=== PATIENT | male | born 2000 | race Caucasian/White ===

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

== ENCOUNTER → 2020-04-15 15:45 | Outpatient (CLI) | payer BC, SELFPAY ==
[2018-11-06 14:11] VITALS: BMI 20.5
[2020-04-15 17:59] LABS: Absolute Lymphocyte Count 2.69 X10^3/uL (0.83-4.51); Absolute Neutrophil Count 3.1 X10^3/uL (2.0-7.7); Basophil# 0.02 X10^3/uL; Basophil% 0.3 % (0-1); Eosinophil# 0.05 X10^3/uL; Eosinophils% 0.8 % (0-5); Hematocrit 45.1 % (40-54); Hemoglobin 15.6 g/dL (13.0-16.5); Lymphocyte # 2.69 X10^3/ul (4.0); Lymphocyte % 41.8 % (19-41); Mean Corp Hgb Conc 34.6 g/dL (32-36); Mean Corpuscular Hgb 31.8 pg (27.0-32.0); Mean Platelet Vol. 12.4 fl (6.2-12.0); Monocyte# 0.54 X10^3/uL; Monocyte% 8.4 % (0-10); NRBC Flagged by Analyzer 0 % (0-5); Neutrophil # 3.12 X10^3/uL (2.7-7.7); Neutrophil % 48.5 % (47-70); Platelet Count 220 K/mm3 (150-450); RBC Distribution Width SD 40.7 fl (35.1-43.9); White Blood Count 6.4 K/mm3 (4.4-11.0)
[2020-04-15 18:21] LABS: Erythrocyte Sedimentation Rate 1 mm/hr (0-20)
[2020-04-15 18:25] LABS: ALB/GLOB Ratio 1.5 RATIO (0.9-2.4); AST(SGOT) 11 U/L (15-37); Alanine Aminotransfer ALT/SGPT 16 U/L (16-61); Albumin, Serum 4.5 g/dL (3.2-5.0); Alkaline Phosphatase 71 U/L (45-117); Amylase 36 U/L (25-115); Anion Gap 6 (5-15); BUN 14 mg/dL (7-18); BUN/Creat Ratio 14.6 RATIO (10-20); Calcium,Total 9.4 mg/dL (8.5-10.1); Chloride 108 mmol/L (98-107); Creatinine, Serum 0.96 mg/dL (0.70-1.30); EST Glomerular Filtration Rate 106 mL/min (>60); Est Glom Filt Rate - Afr Amer 128 mL/min (>60); Glucose 105 mg/dL (74-106); Lipase 109 U/L (73-393); Potassium 4.1 mmol/L (3.5-5.1); Protein, Total 7.5 g/dL (6.4-8.2); Sodium Level 143 mmol/L (136-145)
== END ==
LOC: MFPLAB 15:46
PROVIDERS: PCP Family Medicine; Referring Provider Family Medicine; Visit Provider Family Medicine
DX: R10.9 Unspecified abdominal pain (principal)
CPT/HCPCS: 36415; 80053; 82150; 83690; 85025; 85652

== ENCOUNTER → 2020-04-24 10:02 | Outpatient (CLI) | payer BC, SELFPAY ==
[2018-11-06 14:11] VITALS: BMI 20.5
--- NOTE | 2020-04-24 10:05 | RAD_ITS ---
STUDY: AIR-CONTRAST ESOPHAGRAM STUDY REASON FOR EXAM: Male, 19 years old. Vomiting FLUOROSCOPY TIME (if supplied): (0:22) minutes/seconds, 12 images. TECHNIQUE: Barium pill swallow with sips of water is performed at the beginning of the study without difficulty. Multiple barium swallows were performed under fluoroscopic monitoring. Multiple views of the esophagus, the upper stomach were performed. COMPARISON: None. FINDINGS: Barium pill swallow with sips of water is performed at the beginning of the study without difficulty. The esophagus appears normal in size and shape it shows unremarkable mucosal pattern. There is no evidence of hiatal hernia or abnormal vascular compression. RAD/Esophagus Dual Contrast IMPRESSION: Unremarkable study. Electronically Signed: Galo Mcdowell MD at 4:22 EDT Tel , Service support ,
== END ==
PROVIDERS: PCP Family Medicine; Visit Provider Family Medicine
DX: R11.10 Vomiting, unspecified (principal)
CPT/HCPCS: 74221

== ENCOUNTER 2023-11-06 13:07 | Emergency (ER) | payer OTHER, BC, SELFPAY ==
[2023-11-06 13:08] VITALS: BP 127/72; PULSE 51; RESP 18; TEMP 36.2; O2SAT 100; BMI 21.7
--- NOTE | 2023-11-06 15:50 | CT_ITS ---
STUDY: CT BRAIN WITHOUT CONTRAST REASON FOR EXAM: Male, 23 years old. Head injury RADIATION DOSAGE (If Supplied By Facility): CTDIvol = ( 47.06 ) mGy, DLP = ( 890.33 ) mGycm TECHNIQUE: Transaxial CT imaging of the brain was performed without administration of intravenous contrast material. Individualized dose optimization techniques were used for this CT. COMPARISON: No relevant priors. FINDINGS: Mild soft tissue swelling of the left forehead without associated skull fracture Mild ventricular asymmetry likely normal variant.. Normal white matter tracts of the cerebral hemispheres. Normal basal ganglia and thalami. Normal brainstem. Normal cerebellum. There is no intracranial hemorrhage. There are no findings of an acute ischemic infarction. Normal visualized paranasal sinuses. CT/Brain/Head without Contrast IMPRESSION: Mild soft tissue swelling of the left forehead without evidence for acute skull fracture or intracranial hemorrhage. Electronically Signed: Vini Luu MD at 16:45 EDT ,
--- NOTE | 2023-11-06 15:50 | RAD_ITS ---
STUDY: X-RAY - LEFT WRIST REASON FOR EXAM: Male, 23 years old. Trauma TECHNIQUE: 3 view(s) of the wrist were obtained. COMPARISON: None. FINDINGS: Normal visualized distal radius and ulna. Normal radiocarpal articulation. Normal distal radioulnar articulation. Normal carpal bones. Normal carpal articulations. Normal carpometacarpal articulation of the thumb. Normal second through fifth carpometacarpal articulations. Normal visualized metacarpal bones. The soft tissue structures are unremarkable. RAD/Wrist min 3 Views IMPRESSION: Normal x-ray examination of the wrist. Electronically Signed: Vini Luu MD at 16:47 EDT ,
--- NOTE | 2023-11-06 15:51 | EX.ED.GENINJ ---
HPI History of Present Illness Chief Complaint: Head Injury Narrative Narrative: 23-year-old male who denies any acute past medical history presents with work-related injury that happened approximately 3-1/2 hours ago. He states that he works at [employer], and he just received dakotah of straw. He was trying to remove them when the first row fell on top of him. He fell forward onto the pavement from about 4 feet high off the trailer. He thinks he may have lost consciousness for about 5 seconds. He presents with injury to his forehead mainly where he sustained lacerations. He is unsure of his last tetanus immunization. He also states that during the fall he injured his left wrist/medial aspect. He has pain is worse with movement. He is right-hand dominant. Additionally, he thinks he may have broken his right great toe. He does not take blood thinners or other daily medications. Tetanus Immunization: Unknown [facility] Medical History Dog bite of finger Acute appendicitis Home Medications ?Medication ?Instructions ?Recorded ?Last Taken ?Type cephalexin 500 mg capsule 500 mg PO TID #21 caps 10/18/18 Unknown Rx Allergy/AdvReac Type Severity Reaction Status Date / Time No Known Allergies Allergy Verified 11/06/23 13:08 Surgical History S/P laparoscopic appendectomy (~12/19/17) Social History Smoking Status: Never smoker ROS ROS ED ROS Narrative Constitutional: No fever, no chills. HEENT: No sore throat. No neck pain. No loss of vision. No rhinorrhea. Lacerations to forehead. Cardiovascular: No chest pain. No palpitations. No pedal edema. Respiratory: No cough, no shortness of breath. Abdominal: No abdominal pain. No nausea. No vomiting. Genitourinary: No dysuria. No hematuria. Musculoskeletal: No myalgias. Left medial wrist pain worse with movement. Right great toe pain worse with movement and weightbearing, and walking. Neurologic: No headaches. No dizziness. No lightheadedness. Skin: No rash. No change in color. EXAM Physical Exam Narrative Exam Narrative: GCS 15. ABCs are intact. Head is normocephalic. There are total of 3 lacerations on his forehead, 1 running vertically more towards the midline that is approximately 1 cm or less, no active bleeding or gaping. There is another less than 1 cm laceration running more horizontally, next to it is a less than 0.5 cm superficial laceration. Cardiovascular examination reveals a regular rate and rhythm with intermittent bradycardia. Lungs are clear to auscultation bilaterally. Neck is soft and supple without vertebral point tenderness or bony step-off. Full range of motion without pain. Abdomen soft nontender with normoactive bowel sounds. Mild tenderness to palpation left distal ulna. Flexion extension of wrist intact. Uninjured at elbow and above. Able to oppose thumb, left. Palpable radial pulse. Abduction and adduction and fingers intact. Good capillary refill fingers of left hand. Right great toe tenderness to palpation with mild ecchymosis. Good capillary refill. Palpable dorsalis pedis pulse, right foot. Const Vital Signs: 11/06/23 13:08 11/06/23 16:01 11/06/23 17:07 Temperature 97.1 F L Temperature Source Temporal Pulse Rate 51 L Respiratory Rate 18 Respiratory Effort Normal Blood Pressure 127/72 H 122/91 H Blood Pressure Mean 90 101 Pulse Ox 100 Oxygen Delivery Method Room Air MDM MDM MDM Narrative Medical decision making narrative: Patient's tetanus will be updated. Differential diagnosis includes intracranial hemorrhage versus skull fracture versus closed head injury. For his left wrist injury, differential includes but not limited to fracture versus sprain, and the same goes for his right great toe, he may have an underlying fracture versus toe sprain/foot contusion. His superficial and the lacerations on his forehead were cleansed. I do feel that they are amenable to Dermabond closure as they are not gaping. I reviewed the radiology report of the CT of the brain and there is mild soft tissue swelling of the left forehead without acute skull fracture or intracranial hemorrhage. Wrist x-ray and 3 views of the left wrist interpreted by myself shows no acute fracture. I reviewed the radiology report which confirms my independent interpretation. On my independent interpretation of the x-ray of the right foot, there is a comminuted minimally displaced fracture that appears intra-articular of the great toe. It is the distal phalanx portion. At this point in time, he will be placed in a walking boot and be weightbearing as tolerated. He was referred to orthopedics in the [facility] as this is a work-related injury. His wounds were cleansed with Shur-Clens and Dermabond applied. Patient tolerated procedure well. He will take [id number] medications and he was given a note to return to work tomorrow with restrictions of having to wear his walking boot, and allow patient to sit and elevate his right lower extremity as needed. Restrictions apply until cleared by orthopedics or [facility] clinic. Return instructions to the emergency department were reviewed. Disposition is discharged home in stable condition. History & Record Review Discussion w/independent historian: Patient Additional record(s) reviewed:: Prior ED visit (Noncontributory to current chief complaint) Radiography Diagnostic Testing: Clinical Impression(s) from Imaging Studies Brain CT 11/06/23 15:50 IMPRESSION: Mild soft tissue swelling of the left forehead without evidence for acute skull fracture or intracranial hemorrhage. Electronically Signed: Vini Luu MD at 16:45 EDT , Wrist X-Ray 11/06/23 15:50 IMPRESSION: Normal x-ray examination of the wrist. Electronically Signed: Vini Luu MD at 16:47 EDT , Foot X-Ray 11/06/23 16:16 IMPRESSION: Acute comminuted minimally displaced fracture of the distal phalanx of the great toe Electronically Signed: Vini Luu MD at 16:48 EDT , Discharge Plan Triage Chief Complaint: Head Injury ED Provider: Johnny Marie Dx/Rx/DC Orders Clinical Impression: Fall, Fracture of great toe of right foot, Left wrist sprain, Laceration of skin of forehead, Closed head injury Instructions: ED Head Injury (Adult), ED Laceration, Face: Skin Glue, ED Fracture, Toe, Closed, ED Wrist Sprain Prescriptions: No Action cephalexin 500 mg capsule 500 mg PO TID Qty: 21 0RF Primary Care Provider: Teo Lopez Referrals: Teo Lopez MD [Primary Care Provider] - 3-5 Days Jan Perry DO [Med Staff - Active Staff] - 3-5 Days Clinic,[facility] [Non-Staff] - 2 Days Activity Restrictions/Additional Instructions: Follow-up with the [facility] clinic within the next few days for further restrictions/back to work. Call Dr. Blackwell to see if he takes workmen's compensation claims for your right great toe fracture. Weightbearing as tolerated. Wear your walking boot, you may remove it for bathing and sleeping. Print Language: Moldovan Disposition Disposition: Home, Self Care Discharge Date/Time: 11/06/23 18:05
[2023-11-06] MEDS: Diphth,Pertuss(Acell),Tet Vac 0.5 ML Vial IM (15:57)
--- NOTE | 2023-11-06 16:16 | RAD_ITS ---
STUDY: X-RAY - RIGHT FOOT CLINICAL: Male, 23 years old. Trauma -- Attention great toe TECHNIQUE: 3 view(s) of the foot. COMPARISON: None. FINDINGS: Normal talus, calcaneus, and tarsal bones. Normal visualized subtalar, talonavicular, calcaneocuboid, tarsal and tarsometatarsal articulations. Normal metatarsi. Normal metatarsophalangeal joint of the great toe. Normal tibial and fibular sesamoid bones. Normal interphalangeal joint of the great toe. Acute minimally displaced intra-articular fracture of the distal phalanx of the great toe Normal second through fifth metatarsophalangeal joints. Normal interphalangeal joints and phalanges of the lesser toes. Soft tissue swelling of the great toe RAD/Foot min 3 Views IMPRESSION: Acute comminuted minimally displaced fracture of the distal phalanx of the great toe Electronically Signed: Vini Luu MD at 16:48 EDT ,
[2023-11-06 17:07] VITALS: BP 122/91
== END 2023-11-06 18:05 | disposition home or self-care (01) ==
PROVIDERS: Emergency Provider Emergency Medicine; PCP Family Medicine; Visit Provider Emergency Medicine
DX: S01.81XA Laceration without foreign body of other part of head, initial encounter (principal); W17.89XA Other fall from one level to another, initial encounter; Y93.89 Activity, other specified; Y99.0 Civilian activity done for income or pay; Y92.89 Other specified places as the place of occurrence of the external cause; Z23 Encounter for immunization; S63.502A Unspecified sprain of left wrist, initial encounter; S09.90XA Unspecified injury of head, initial encounter; S92.421A Displaced fracture of distal phalanx of right great toe, initial encounter for closed fracture
CPT/HCPCS: 12011; 70450; 73110; 73630; 90715; 99283

== ENCOUNTER → 2023-11-10 | Outpatient (CLI) | payer OTHER, SELFPAY ==
--- NOTE | 2023-11-10 09:10 | RAD_ITS ---
STUDY: X-RAY - LEFT HAND REASON FOR EXAM: Male, 23 years old. left hand contusion TECHNIQUE: 3 view(s) of the hand. COMPARISON: None. FINDINGS: Normal radiocarpal articulation. Normal distal radioulnar joint. Normal visualized carpal bones. Normal carpal articulations Normal carpometacarpal articulation of the thumb. Normal second through fifth carpometacarpal joints. Normal metacarpi. Normal metacarpophalangeal joint of the thumb. Normal interphalangeal joint of the thumb. Normal proximal and distal phalanges of the thumb. Normal metacarpophalangeal joints of the second through fifth fingers. Normal proximal and distal interphalangeal joints of the second through fifth fingers. Normal phalanges of the second through fifth fingers. The soft tissue structures are unremarkable. RAD/Hand Min 3 Views IMPRESSION: Normal x-ray examination of the hand. Electronically Signed: Janusz Vasquez MD at 9:43 EDT ,
== END | disposition home or self-care (01) ==
LOC: MTRAD 09:06
PROVIDERS: PCP Family Medicine; Referring Provider Physician Assistant Surgical; Visit Provider Physician Assistant Surgical
DX: S63.502A Unspecified sprain of left wrist, initial encounter (principal)
CPT/HCPCS: 73130